=== PATIENT | female | born 1995 | race Caucasian/White ===

== ENCOUNTER 2021-02-02 18:15 | Emergency (ER) | payer OTHER ==
[~2021-02-02] VITALS: Ht 167.6 cm; Wt 75.6 kg
[2021-02-02 18:16] VITALS: BP 137/64
[2021-02-02] MEDS ORDERED: HYDR-643 PO (18:25)
== END 2021-02-02 21:35 | disposition home or self-care (01) ==
LOC: M ED 18:15
DX: F43.0 Acute stress reaction (principal); G89.29 Other chronic pain; M25.562 Pain in left knee; F17.210 Nicotine dependence, cigarettes, uncomplicated